=== PATIENT | male | born 1985 | race Caucasian/White ===

== ENCOUNTER 2023-08-24 20:25 | Emergency (ER) | payer BC ==
[2023-08-24] MEDS ORDERED: Bacitracin 1 PK ONE (21:55)
== END 2023-08-24 22:13 | disposition home or self-care (01) ==
LOC: CSHERS 20:25
DX: S61.212A Laceration without foreign body of right middle finger without damage to nail, initial encounter (principal); W27.4XXA Contact with kitchen utensil, initial encounter
CPT/HCPCS: 12001